=== PATIENT | female | born 1990 | race Caucasian/White ===

== ENCOUNTER 2017-07-02 14:54 | Emergency (ER) | payer BC, OTHER ==
[2017-07-02 15:01] VITALS: BP 104/63; BMI 32.1
--- NOTE | 2017-07-02 16:47 | DR.GENAD ---
HPI - PCP Primary Care Physician: tiana - Complaint/Symptoms Chief Complaint:: patient stated she woke up with a aweful pain in her upper back that hurts when she moves - Nurses notes reviewed Nurses Notes Review: Yes - Source History Provided: Patient - Mode of Arrival Mode of Arrival: Ambulatory - Timing Onset of Chief Complaint: 07/01/17 PMH - PMH Past Medical History: No Past Surgical History: Yes Surgical History: Abdominal Surgery, Cholecystectomy, Ortho Surgery, Other - Family History History of Family Medical Conditions: Yes Family Medical History: Hypertension - Social History Does patient currently use any type of tobacco product: No Have you used tobacco products in the last 12 months: No Type of Tobacco Use: None Does any household member use tobacco: No Alcohol Use: Occasionally Do you use any recreational Drugs:: No Lives With: Family Lives Where: Home - infectious screening In the last 2 months have you had wt loss of >10#?: NO Have you had fever, night sweats or hemotysis?: No Have you traveled outside the country in the last 6 months?: No Isolation: Standard PE - Vital Signs Vitals: Temperature 97.4 F Pulse Rate 60 Respiratory Rate 16 Blood Pressure 104/63 O2 Sat by Pulse Oximetry 98 ROR - Labs Reviewed Result Diagrams: 07/02/17 17:30 07/02/17 17:30 Laboratory: WBC 7.0 X10^3/uL (3.6-10.0) 07/02/17 17:30 RBC 4.48 X10^6/uL (3.5-5.4) 07/02/17 17:30 Hgb 13.9 g/dL (12.0-16.0) 07/02/17 17:30 Hct 39.7 % (36.0-47.0) 07/02/17 17:30 MCV 88.8 fL (80.0-100.0) 07/02/17 17:30 MCH 31.1 pg (27.0-34.0) 07/02/17 17:30 MCHC 35.0 g/dL (33.0-35.0) 07/02/17 17:30 RDW 12.9 % (11.6-16.5) 07/02/17 17:30 Plt Count 279 X10^3/uL (150.0-450.0) 07/02/17 17:30 MPV 7.6 fL (7.4-11.0) 07/02/17 17:30 Neut % 51.7 % (42.0-75.0) 07/02/17 17:30 Lymph % 37.5 % (21.0-51.0) 07/02/17 17:30 Moore % 7.0 % (0.0-13.0) 07/02/17 17:30 Eos % 2.9 % (0.9-2.9) 07/02/17 17:30 Baso % 0.9 % (0.2-1.0) 07/02/17 17:30 Neut # 3.6 x10^3/uL (2.2-4.8) 07/02/17 17:30 Lymph # 2.6 X10^3/uL (1.3-2.9) 07/02/17 17:30 Moore # 0.5 x10^3/uL (0.3-0.8) 07/02/17 17:30 Eos # 0.2 x10^3/uL (0.0-0.2) 07/02/17 17:30 Baso # 0.1 X10^3/uL (0.0-0.1) 07/02/17 17:30 Absolute Nucleated RBC 0.1 /100WBC 07/02/17 17:30 Sodium 142 mmol/L (136-145) 07/02/17 17:30 Corrected Sodium TNP 07/02/17 17:30 Potassium 3.8 mmol/L (3.5-5.1) 07/02/17 17:30 Chloride 103 mmol/L (98-107) 07/02/17 17:30 Carbon Dioxide 30.2 mmol/L (21-32) 07/02/17 17:30 BUN 13 mg/dL (7-18) 07/02/17 17:30 Creatinine 0.91 mg/dL (0.55-1.02) 07/02/17 17:30 Est GFR (MDRD) Af Amer > 60 (>60) 07/02/17 17:30 Est GFR (MDRD) Non-Af > 60 (>60) 07/02/17 17:30 Glucose 88 mg/dL (65-99) 07/02/17 17:30 Calcium 9.5 mg/dL (8.5-10.1) 07/02/17 17:30 Specimen Type Clean catch urine 07/02/17 18:41 Urine Color Yellow (YELLOW) 07/02/17 18:41 Urine Appearance Clear (CLEAR) 07/02/17 18:41 Urine pH 6.0 (5.0 - 8.0) 07/02/17 18:41 Ur Specific [place] 1.015 (1.000-1.030) 07/02/17 18:41 Urine Protein Negative (NEGATIVE) 07/02/17 18:41 Urine Glucose (UA) Negative (NEGATIVE) 07/02/17 18:41 Urine Ketones Negative (NEGATIVE) 07/02/17 18:41 Urine Occult Blood Negative (NEGATIVE) 07/02/17 18:41 Urine Nitrite Negative (NEGATIVE) 07/02/17 18:41 Urine Bilirubin Negative (NEGATIVE) 07/02/17 18:41 Urine Urobilinogen Normal (NORMAL) 07/02/17 18:41 Ur Leukocyte Esterase Negative (NEGATIVE) 07/02/17 18:41 Urine RBC Negative /HPF (NEGATIVE) 07/02/17 18:41 Urine WBC Rare /HPF (NEGATIVE) 07/02/17 18:41 Ur Squamous Epith Cells Negative /HPF (NEGATIVE) 07/02/17 18:41 Urine Bacteria Negative /HPF (NEGATIVE) 07/02/17 18:41 Ur Culture Indicated? No/not indicated 07/02/17 18:41 - Discharge Plan Condition: Stable Prescriptions: Cyclobenzaprine HCl [FLEXERIL 10 MG *] 10 mg PO TID PRN #20 tab PRN Reason: Ibuprofen [MOTRIN TAB 800 MG *] 800 mg PO BID PRN #20 tab PRN Reason: Pain/Inflammation - Follow ups/Referrals Follow ups/Referrals: TETE SMITH [Primary Care Provider] - 3 days - Instructions Instructions: Back Pain, Adult, [id number] Additional Instructions: RETURN TO ED IF WORSE.
[2017-07-02] MEDS ORDERED: TORADOL 60 MG VIAL IM ONE (16:49)
[2017-07-02] MEDS ORDERED: TORADOL 60 MG VIAL ONE (16:51)
[2017-07-02 18:00] LABS: BASOPHILS # (AUTO) 0.1 X10^3/uL (0.0-0.1); BASOPHILS % (AUTO) 0.9 % (0.2-1.0); EOSINOPHILS # (AUTO) 0.2 x10^3/uL (0.0-0.2); EOSINOPHILS % (AUTO) 2.9 % (0.9-2.9); HEMATOCRIT 39.7 % (36.0-47.0); HEMOGLOBIN 13.9 g/dL (12.0-16.0); LYMPHOCYTES # (AUTO) 2.6 X10^3/uL (1.3-2.9); LYMPHOCYTES % (AUTO) 37.5 % (21.0-51.0); MEAN CORPUSCULAR HEMOGLOBIN 31.1 pg (27.0-34.0); MEAN CORPUSCULAR VOLUME 88.8 fL (80.0-100.0); MEAN PLATELET VOLUME 7.6 fL (7.4-11.0); MONOCYTES # (AUTO) 0.5 x10^3/uL (0.3-0.8); NEUTROPHILS # (AUTO) 3.6 x10^3/uL (2.2-4.8); NEUTROPHILS % (AUTO) 51.7 % (42.0-75.0); PLATELET COUNT 279 X10^3/uL (150.0-450.0); RED BLOOD COUNT 4.48 X10^6/uL (3.5-5.4); RED CELL DISTRIBUTION WIDTH 12.9 % (11.6-16.5)
[2017-07-02 18:03] LABS: BLOOD UREA NITROGEN 13 mg/dL (7-18); CALCIUM 9.5 mg/dL (8.5-10.1); CARBON DIOXIDE 30.2 mmol/L (21-32); CHLORIDE 103 mmol/L (98-107); CREATININE 0.91 mg/dL (0.55-1.02); SODIUM 142 mmol/L (136-145); eGFR BLACK RACES > 60 (>60); eGFR NON BLACK RACES > 60 (>60)
--- NOTE | 2017-07-02 18:03 | CT ---
STUDY: CT ABDOMEN AND PELVIS WITH IV AND ORAL CONTRAST HISTORY: Sharp pain in left flank, sudden in onset today. Comparison: May 23, 2016. Technique: Multiple axial images of the abdomen and pelvis were obtained from the lung bases to the pubic symphysis following the administration of IV contrast. Automated exposure control (AEC) was ut ilized to adjust the MA and/or kV. Findings: The visualized portions of the lung bases are unremarkable. CT abdomen: The gallbladder is surgically absent. Surgical clips are noted in the gallbladder fossa. The liver, spleen, pancreas, kidneys, and adrenal glands are normal in appearance. No significant me senteric lymphadenopathy or inflammatory stranding is appreciated. The stomach is normal in appearance. The small bowel is normal in appearance, without evidence of bow el wall thickening or small bowel obstruction. Surgical sutures are noted within the small bowel in t he mid abdomen, asymmetric to the right of midline. No definite transition point is identified. There is no evidence of small bowel obstruction. The terminal ileum and cecum are within normal limits. Th e appendix is unremarkable. There is no evidence of right lower quadrant fat stranding. The ascending and transverse colon are within normal limits. The descending colon is unremarkable. CT pelvis: The sigmoid colon is within normal limits. The rectum appears normal. The urinary bladder is normal. No abnormal fluid collections are identified in the pelvis. The uterus and adnexa are unre markable. There is no evidence of acute osseous abnormality. IMPRESSION: 1. No evidence of acute abdominal or pelvic abnormality. 2. Postsurgical change as described. Clinical correlation with prior surgical history is recommended . Reported By:
[2017-07-02] MEDS ORDERED: NORFLEX INJ IM ONE (18:50)
[2017-07-02 18:56] LABS: BILIRUBIN,URINE NEGATIVE (NEGATIVE); BLOOD/HEMOGLOBIN,URINE NEGATIVE (NEGATIVE); GLUCOSE, URINE NEGATIVE (NEGATIVE); KETONES,URINE NEGATIVE (NEGATIVE); LEUKOCYTE ESTERASE ,URINE NEGATIVE (NEGATIVE); NITRITES,URINE NEGATIVE (NEGATIVE); PROTEIN,URINE NEGATIVE (NEGATIVE); UROBILINOGEN,URINE NORMAL (NORMAL)
[2017-07-02] MEDS ORDERED: NORFLEX INJ ONE (19:09)
[2017-07-02 19:11] LABS: APPEARANCE,URINE CLEAR (CLEAR); BACTERIA,URINE NEGATIVE /HPF (NEGATIVE); COLOR,URINE YELLOW (YELLOW); RBC,URINE NEGATIVE /HPF (NEGATIVE); SQUAMOUS EPITHELIAL CELL,UR NEGATIVE /HPF (NEGATIVE)
[2017-07-02 21:44] LABS: ALANINE AMINOTRANSFERASE 16 Units/L (12-78); ALBUMIN 4.1 g/dL (3.4-5.0); ALKALINE PHOSPHATASE 72 Units/L (46-116); ASPARTATE AMINO TRANSFERASE 13 Units/L (15-37); TOTAL PROTEIN 7.5 g/dL (6.4-8.2)
== END 2017-07-02 19:30 | disposition home or self-care (01) ==
LOC: ER 15:40
DX: M54.89 Other dorsalgia (principal)
CPT/HCPCS: 36415; 74176; 80053; 81001; 85025; 96372; 99283; J1885; J2360